=== PATIENT | female | born 1965 | race Caucasian/White ===

== ENCOUNTER 2019-06-07 10:10 | Outpatient (CLI) | payer MEDICARE, BC | END 2019-06-07 23:59 | disposition home or self-care (01) | LOC: RAD 10:10 | PROVIDERS: ATTEND Family Medicine | DX: K82.8 Other specified diseases of gallbladder (principal) | CPT/HCPCS: 78226; A9537 ==

== ENCOUNTER 2019-06-09 09:34 | Outpatient (CLI) | payer BC, MEDICARE | END 2019-06-09 23:59 | disposition home or self-care (01) | LOC: RAD 09:34 | PROVIDERS: ATTEND Family Medicine | DX: K83.1 Obstruction of bile duct (principal); R94.5 Abnormal results of liver function studies | CPT/HCPCS: 74181 ==

== ENCOUNTER 2024-07-13 14:51 | Outpatient (CLI) | payer MEDICARE, BC ==
[~2024-07-13 14:51] MED LIST: ALPR1TAB7 PO; DULO60CA65 PO; ESTR0.5T29 PO; HYDR-3972 PO; LEVO25TA7 PO; OLAN5TAB75 PO; OXYB10TA30 PO; PANT40TA54 PO; PROG100C11 PO
== END 2024-07-13 23:59 | disposition home or self-care (01) ==
LOC: CARD DIAG 14:51
PROVIDERS: ATTEND Family Medicine
DX: I08.8 Other rheumatic multiple valve diseases (principal); I50.22 Chronic systolic (congestive) heart failure
CPT/HCPCS: 93306

== ENCOUNTER 2024-12-28 14:18 | Outpatient (CLI) | payer MEDICARE, BC ==
--- NOTE | 2024-12-28 16:07 | RADIOLOGY REPORT ---
EXAM: MR MRI LOWER EXTREMITY RIGHT HISTORY: INTERNAL DERANGEMENT OF RIGHT KNEE COMPARISON: None TECHNIQUE: Multiplanar, multisequence imaging of the right knee was performed without contrast FINDINGS: MEDIAL COMPARTMENT: Truncation of the inner 1/3 likely compatible with fraying of the central body of the medial meniscus [id number] medial weight- bearing compartment joint space loss with a opposing cartilage loss/ thinning. LATERAL COMPARTMENT: Likely complete tear of the posterior root of the lateral meniscus. Mild lateral meniscal extrusion. Fraying of the inner 1/3 of the lateral meniscus. Subchondral edema of the lateral femoral condyle and lateral tibial plateau reflecting overlying high-grade cartilage loss/ chondrosis broad area of cartilage loss of the lateral tibial plateau. PATELLOFEMORAL COMPARTMENT: Broad area of full-thickness cartilage loss of the medial patellar facet. Opposing full-thickness cartilage loss of the medial trochlear ridge. CRUCIATE LIGAMENTS: Intact anterior and posterior cruciate ligaments. MEDIAL SUPPORTING STRUCTURES: Intact medial collateral ligament. LATERAL SUPPORTING STRUCTURES: Intact iliotibial band, lateral capsular ligament, fibular collateral ligament, popliteus, and biceps femoris tendons EXTENSOR MECHANISM: Intact JOINT SPACE/FLUID: No joint effusion. small Pérez's cyst. Trace knee joint fluid. BONES: No acute fracture, osseous contusion, or aggressive focal osseous lesion MUSCLES: Normal in signal intensity and morphology NEUROVASCULAR: Unremarkable OTHER: None IMPRESSION: 1. 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 2. Complete tear of the posterior root of the lateral meniscus with mild lateral meniscal extrusion. 3. Fraying of the inner 1/3 of the lateral meniscus and central body of the medial meniscus.
== END 2024-12-28 23:59 | disposition home or self-care (01) ==
LOC: MRI02 14:18
PROVIDERS: ATTEND Family Medicine
DX: S83.271A Complex tear of lateral meniscus, current injury, right knee, initial encounter (principal); M23.91 Unspecified internal derangement of right knee; M17.11 Unilateral primary osteoarthritis, right knee; X58.XXXA Exposure to other specified factors, initial encounter; Y93.89 Activity, other specified; Y92.89 Other specified places as the place of occurrence of the external cause; Y99.8 Other external cause status
CPT/HCPCS: 73721